=== PATIENT | male | born 1995 | race Caucasian/White ===

== ENCOUNTER 2022-09-13 14:12 | Emergency (ER) | payer OTHER ==
[2022-09-13 14:26] VITALS: BP 128/81; PULSE 88; RESP 18; TEMP 98.6; BMI 31.5
[2022-09-13] MEDS ORDERED: KETOROLAC TROMETHAMINE 30 MG/1 ML VIAL IM ONE (14:59)
[2022-09-13] MEDS ORDERED: METHOCARBAMOL 500 MG TABLET PO ONE (15:00)
[2022-09-13] MEDS ORDERED: KETOROLAC TROMETHAMINE 30 MG/1 ML VIAL ONE (15:01)
[2022-09-13] MEDS ORDERED: METHOCARBAMOL 500 MG TABLET ONE (15:06)
== END 2022-09-13 15:41 | disposition home or self-care (01) ==
LOC: JER 14:12 → JERFT 14:12
PROC: 3E023GC Introduction of Other Therapeutic Substance into Muscle, Percutaneous Approach (ICD-10-PCS; principal; 2022-09-13)
DX: S29.012A Strain of muscle and tendon of back wall of thorax, initial encounter (principal); S46.812A Strain of other muscles, fascia and tendons at shoulder and upper arm level, left arm, initial encounter; X50.0XXA Overexertion from strenuous movement or load, initial encounter
CPT/HCPCS: 71046-TC-FY; 99284-25